=== PATIENT | male | born 1970 | race Two or more races ===

== ENCOUNTER 2018-09-15 17:55 | Inpatient (IN) | payer MEDICAID ==
[~2018-09-15] VITALS: Ht 167.6 cm; Wt 126.3 kg
[~2018-09-15 17:55] MED LIST: AMLO-512 PO; HYDR25TA84 PO; METF-960 PO; NACL1 PO; SERT50TA12 PO
[2018-09-15 18:14] LABS: GLUCOSE,POINT OF CARE 178 MG/DL (70-110)
[2018-09-15 19:04] LABS: HEMOGLOBIN 15.3 g/dL (13.5-17.5); MEAN CORPUSCULAR HEMOGLOBIN 28.6 pg (26.0-34.0); MONOCYTES # (AUTO) 0.6 K/uL (0.1-1.0); RED BLOOD CELL COUNT(AUTO) 5.34 MIL/uL (4.50-5.90)
[2018-09-15 19:16] LABS: ANION GAP 10 mmol/L (8-16); BASOPHILS % (AUTO) 0.7 % (0.0-2.0); CARBON DIOXIDE 27 mmol/L (22-29); CHLORIDE 99 mmol/L (98-107); CREATININE 0.74 mg/dL (0.60-1.30); EOSINOPHILS % (AUTO) 3.9 % (1.0-6.0); GLOMERULAR FILTR. RATE CALC > 60 mL/min (>60); GLUCOSE,RANDOM 158 mg/dL (70-110); HEMATOCRIT 45.4 % (41-53); LYMPHOCYTES # (AUTO) 3.9 K/uL (1.0-4.8); LYMPHOCYTES % (AUTO) 34.4 % (22.0-44.0); MEAN CORPUSCULAR HGB CONC 33.6 G/dL (31.0-37.0); MEAN CORPUSCULAR VOLUME 85 fL (80-100); NEUTROPHILS # (AUTO) 6.4 K/uL (1.8-7.7); PLATELET COUNT (AUTO) 253 K/uL (150-450); POTASSIUM 3.6 mmol/L (3.5-5.1); RED CELL DISTRIBUTION WIDTH 14.2 % (11.5-14.5); SODIUM SERUM 136 mmol/L (136-145); UREA NITROGEN, BLOOD 15 mg/dL (7-18)
[2018-09-15 19:22] LABS: ALANINE AMINOTRANSFERASE 18 U/L (12-78); ALBUMIN 3.4 g/dL (3.4-5.0); ALKALINE PHOSPHATASE 80 U/L (46-116); ASPARTATE AMINOTRANSFERASE 8 U/L (15-37); BILIRUBIN,TOTAL 0.2 mg/dL (0.1-1.0); SALICYLATE < 2.8 mg/dL (2.8-20.0); TOTAL PROTEIN, SERUM 7.4 g/dL (6.4-8.2)
[2018-09-15 19:31] LABS: AMPHET/METH SCREEN,URINE POSITIVE (NEGATIVE); BARBITURATE SCREEN, URINE NEGATIVE (NEGATIVE); BENZODIAZEPINES SCREEN,URINE NEGATIVE (NEGATIVE); CANNABINOID SCREEN,URINE NEGATIVE (NEGATIVE); COCAINE SCREEN,URINE NEGATIVE (NEGATIVE); METHADONE SCREEN, URINE NEGATIVE (NEGATIVE); OPIATE SCREEN,URINE NEGATIVE (NEGATIVE); PHENCYCLIDINE SCREEN,URINE NEGATIVE (NEGATIVE)
[2018-09-15] MEDS ORDERED: ACETAMINOPHEN 500 MG TABLET PO ONE (21:00)
[2018-09-16] MEDS ORDERED: HALOPERIDOL 5 MG TABLET PO PRN (12:15)
[2018-09-16] MEDS ORDERED: LORazepam 2 MG TABLET PO PRN (12:15)
[2018-09-16] MEDS ORDERED: ZOLPIDEM TARTRATE 10 MG TABLET PO PRN (12:15)
[2018-09-16] MEDS ORDERED: ACETAMINOPHEN 325 MG TABLET PO PRN ×2 (12:30→22:30)
[2018-09-16] MEDS ORDERED: IBUPROFEN 400 MG TABLET PO PRN ×2 (12:30→22:30)
[2018-09-16] MEDS ORDERED: DiphenhydrAMINE HCL 50 MG/ML VIAL IM ONE (12:45)
[2018-09-16] MEDS ORDERED: HALOPERIDOL LACTATE 5 MG/ML VIAL IM ONE (12:45)
[2018-09-16] MEDS ORDERED: LORazepam 2 MG/ML VIAL IM ONE (12:45)
[2018-09-16 20:22] VITALS: BP 142/83
[2018-09-16] MEDS ORDERED: PETROLATUM,WHITE 28 GM JELLY TP PRN (22:30)
[2018-09-16] MEDS ORDERED: DOCUSATE SODIUM 100 MG CAPSULE PO PRN (22:30)
[2018-09-16] MEDS ORDERED: ALBUTEROL SULFATE HFA 90 MCG/PUFF 8 GM INHALER IH PRN (22:30)
[2018-09-16] MEDS ORDERED: DEXTROSE 50%-WATER 25 GM/50 ML SYRINGE IVP PRN (22:30)
[2018-09-16] MEDS ORDERED: NICOTINE 14 MG/24 HOUR PATCH TD PRN (22:30)
[2018-09-16] MEDS ORDERED: GuaiFENesin/D-METHORPHAN [SUGAR-FREE] 200-20MG/10 ML SYRUP UDCUP PO PRN (22:30)
[2018-09-16] MEDS ORDERED: LOPERAMIDE HCL 2 MG CAPSULE PO PRN (22:30)
[2018-09-16] MEDS ORDERED: MAGNESIUM HYDROXIDE SUSPENSION 30 ML UDCUP PO PRN (22:30)
[2018-09-16] MEDS ORDERED: ONDANSETRON HCL 4 MG TABLET PO PRN (22:30)
[2018-09-16] MEDS ORDERED: CloNIDine HCL 0.1 MG TABLET PO PRN (22:30)
[2018-09-16] MEDS ORDERED: MAG HYDROX/AL HYDROX/SIMETH ES 30 ML SUSPENSION UDCUP PO PRN (22:30)
[2018-09-17 02:48] VITALS: BP 148/111
[2018-09-17 06:39] LABS: GLUCOMETER DEV NAME(LOC) 3E.C; GLUCOSE,POINT OF CARE 132 MG/DL (70-110)
[2018-09-17] MEDS: MetFORMIN HCL 500 MG TABLET PO SCH (06:50)
[2018-09-17] MEDS ORDERED: MetFORMIN HCL 500 MG TABLET PO SCH (07:30)
[2018-09-17] MEDS ORDERED: AmLODIPine BESYLATE 10 MG TABLET PO SCH (09:00)
[2018-09-17] MEDS: SERTRALINE HCL 50 MG TABLET PO SCH (09:36)
[2018-09-17] MEDS: AmLODIPine BESYLATE 10 MG TABLET PO SCH (09:37)
[2018-09-17] MEDS: HydrALAZINE HCL 25 MG TABLET PO SCH ×2 (09:37→16:56)
[2018-09-17] MEDS: SODIUM CHLORIDE 1 GM TABLET PO SCH ×2 (09:37→16:56)
[2018-09-17 10:04] VITALS: BP 128/85
[2018-09-17 11:09] LABS: GLUCOMETER DEV NAME(LOC) 3E.C; GLUCOSE,POINT OF CARE 134 MG/DL (70-110)
[2018-09-17 16:44] LABS: GLUCOMETER DEV NAME(LOC) 3E.C; GLUCOSE,POINT OF CARE 154 MG/DL (70-110)
[2018-09-17 16:57] VITALS: BP 145/72
[2018-09-17] MEDS: INSULIN LISPRO 100 UNITS/ML SQ PRN (17:38)
[2018-09-17 21:14] LABS: GLUCOMETER DEV NAME(LOC) 3E.C; GLUCOSE,POINT OF CARE 102 MG/DL (70-110)
[2018-09-18 06:25] LABS: GLUCOMETER DEV NAME(LOC) 3E.C; GLUCOSE,POINT OF CARE 130 MG/DL (70-110)
[2018-09-18] MEDS: MetFORMIN HCL 500 MG TABLET PO SCH (06:50)
[2018-09-18] MEDS: INSULIN LISPRO 100 UNITS/ML SQ PRN ×2 (06:57→12:03)
[2018-09-18] MEDS: SODIUM CHLORIDE 1 GM TABLET PO SCH (07:57)
[2018-09-18] MEDS: HydrALAZINE HCL 25 MG TABLET PO SCH (07:57)
[2018-09-18] MEDS: SERTRALINE HCL 50 MG TABLET PO SCH (07:59)
[2018-09-18] MEDS: AmLODIPine BESYLATE 10 MG TABLET PO SCH (07:59)
[2018-09-18 08:40] VITALS: BP 148/97
[2018-09-18 12:14] LABS: GLUCOMETER DEV NAME(LOC) 3E.C; GLUCOSE,POINT OF CARE 154 MG/DL (70-110)
== END 2018-09-18 15:36 | disposition home or self-care (01) | DRG 751 ==
LOC: EMS 17:56 → AHU 09-16 12:24 → 3EC 09-16 20:00
PROVIDERS: ADMIT Psychiatry & Neurology Psychiatry; ATTEND Psychiatry & Neurology Psychiatry
DX: F33.2 Major depressive disorder, recurrent severe without psychotic features (principal); E11.9 Type 2 diabetes mellitus without complications; D72.829 Elevated white blood cell count, unspecified; E78.00 Pure hypercholesterolemia, unspecified; I10 Essential (primary) hypertension; F19.10 Other psychoactive substance abuse, uncomplicated; T40.2X2A Poisoning by other opioids, intentional self-harm, initial encounter; Z87.891 Personal history of nicotine dependence; Z91.19 Patient's noncompliance with other medical treatment and regimen; Z91.5 Personal history of self-harm
CPT/HCPCS: 84443; 96372; G0480; G0481; J1200; J1630; J2060

== ENCOUNTER 2020-10-28 15:23 | Inpatient (IN) | payer MEDICAID ==
[~2020-10-28] VITALS: Ht 167.6 cm; Wt 129.7 kg
[~2020-10-28 15:23] MED LIST changes: +AMLO-258 PO; -AMLO-512 PO; +SERT-439 PO; -SERT50TA12 PO
[2020-10-28 16:14] LABS: BASOPHILS % (AUTO) 0.5 % (0.0-2.0); EOSINOPHILS % (AUTO) 2.7 % (1.0-6.0); HEMATOCRIT 46.9 % (41-53); HEMOGLOBIN 15.8 g/dL (13.5-17.5); LYMPHOCYTES # (AUTO) 2.8 K/uL (1.0-4.8); LYMPHOCYTES % (AUTO) 30.8 % (22.0-44.0); MEAN CORPUSCULAR HEMOGLOBIN 28.8 pg (26.0-34.0); MEAN CORPUSCULAR HGB CONC 33.6 G/dL (31.0-37.0); MEAN CORPUSCULAR VOLUME 86 fL (80-100); MONOCYTES # (AUTO) 0.7 K/uL (0.1-1.0); MONOCYTES % (AUTO) 7.6 % (2.0-9.0); NEUTROPHILS # (AUTO) 5.4 K/uL (1.8-7.7); NEUTROPHILS % (AUTO) 58.4 % (40.0-70.0); PLATELET COUNT (AUTO) 226 K/uL (150-450); RED BLOOD CELL COUNT(AUTO) 5.48 MIL/uL (4.50-5.90); RED CELL DISTRIBUTION WIDTH 14.6 % (11.5-14.5)
[2020-10-28 16:18] LABS: COVID AG,FIA SOURCE NASOPHARYNGEAL
[2020-10-28 16:29] LABS: ANION GAP 10 mmol/L (8-16); CALCIUM, TOTAL 8.8 mg/dL (8.8-10.5); CARBON DIOXIDE 25 mmol/L (22-29); CHLORIDE 99 mmol/L (98-107); CREATININE 0.54 mg/dL (0.60-1.30); GLOMERULAR FILTR. RATE CALC > 60 mL/min (>60); GLUCOSE,RANDOM 109 mg/dL (70-110); POTASSIUM 3.9 mmol/L (3.5-5.1); SODIUM SERUM 134 mmol/L (136-145); UREA NITROGEN, BLOOD 11 mg/dL (7-18)
[2020-10-28 16:33] LABS: AMPHET/METH SCREEN,URINE NEGATIVE (NEGATIVE); BARBITURATE SCREEN, URINE NEGATIVE (NEGATIVE); BENZODIAZEPINES SCREEN,URINE NEGATIVE (NEGATIVE); CANNABINOID SCREEN,URINE NEGATIVE (NEGATIVE); COCAINE SCREEN,URINE NEGATIVE (NEGATIVE); METHADONE SCREEN, URINE NEGATIVE (NEGATIVE); OPIATE SCREEN,URINE NEGATIVE (NEGATIVE); PHENCYCLIDINE SCREEN,URINE NEGATIVE (NEGATIVE)
[2020-10-28 16:33] LABS: ALANINE AMINOTRANSFERASE 36 U/L (12-78); ALBUMIN 3.6 g/dL (3.4-5.0); ALKALINE PHOSPHATASE 59 U/L (46-116); ASPARTATE AMINOTRANSFERASE 14 U/L (15-37); BILIRUBIN,TOTAL 0.4 mg/dL (0.1-1.0); TOTAL PROTEIN, SERUM 7.7 g/dL (6.4-8.2)
[2020-10-28 20:33] VITALS: BP 147/74
[2020-10-29 06:24] VITALS: BP 141/89
[2020-10-29] MEDS ORDERED: ACETAMINOPHEN 325 MG TABLET PO PRN (08:15)
[2020-10-29] MEDS ORDERED: PETROLATUM,WHITE 28 GM JELLY TP PRN (08:15)
[2020-10-29] MEDS ORDERED: ALBUTEROL SULFATE HFA 90 MCG/PUFF 8 GM INHALER IH PRN (08:15)
[2020-10-29] MEDS ORDERED: CloNIDine HCL 0.1 MG TABLET PO PRN (08:15)
[2020-10-29] MEDS ORDERED: ONDANSETRON HCL 4 MG TABLET PO PRN (08:15)
[2020-10-29] MEDS ORDERED: GuaiFENesin/D-METHORPHAN [SUGAR-FREE] 200-20MG/10 ML SYRUP UDCUP PO PRN (08:15)
[2020-10-29] MEDS ORDERED: IBUPROFEN 400 MG TABLET PO PRN (08:15)
[2020-10-29] MEDS ORDERED: MAG HYDROX/AL HYDROX/SIMETH ES 30 ML SUSPENSION UDCUP PO PRN (08:15)
[2020-10-29] MEDS ORDERED: DOCUSATE SODIUM 100 MG CAPSULE PO PRN (08:15)
[2020-10-29] MEDS ORDERED: MAGNESIUM HYDROXIDE SUSPENSION 30 ML UDCUP PO PRN (08:15)
[2020-10-29] MEDS ORDERED: LOPERAMIDE HCL 2 MG CAPSULE PO PRN (08:15)
[2020-10-29 08:42] VITALS: BP 167/90
[2020-10-29] MEDS: LORazepam 2 MG TABLET PO PRN (09:07)
[2020-10-29] MEDS: HALOPERIDOL 5 MG TABLET PO PRN (09:07)
[2020-10-29] MEDS: AmLODIPine BESYLATE 10 MG TABLET PO SCH (09:07)
[2020-10-29] MEDS: HydrALAZINE HCL 25 MG TABLET PO SCH ×2 (09:15→17:08)
[2020-10-29] MEDS: SODIUM CHLORIDE 1 GM TABLET PO SCH ×2 (09:15→17:08)
[2020-10-29 10:36] LABS: CHOL/HDL RATIO 7.3 (4.2-7.3); FREE T4 (FREE THYROXINE) 1.12 ng/dL (0.76-1.46); THYROID STIMULATING HORMONE 1.24 uIU/mL (0.36-3.74)
[2020-10-29] MEDS: SERTRALINE HCL 50 MG TABLET PO SCH (11:20)
[2020-10-29 16:29] VITALS: BP 136/76
[2020-10-30 05:41] VITALS: BP 125/75
[2020-10-30] MEDS: MetFORMIN HCL 500 MG TABLET PO SCH (06:23)
[2020-10-30 08:45] VITALS: BP 167/91
[2020-10-30] MEDS: HydrALAZINE HCL 25 MG TABLET PO SCH ×2 (09:12→17:48)
[2020-10-30] MEDS: AmLODIPine BESYLATE 10 MG TABLET PO SCH (09:12)
[2020-10-30] MEDS: SODIUM CHLORIDE 1 GM TABLET PO SCH ×2 (09:12→17:48)
[2020-10-30] MEDS: SERTRALINE HCL 50 MG TABLET PO SCH (09:12)
[2020-10-30 16:15] VITALS: BP 134/80
[2020-10-30] MEDS: LORazepam 2 MG TABLET PO PRN (17:48)
[2020-10-30] MEDS: ZOLPIDEM TARTRATE 10 MG TABLET PO PRN (23:45)
[2020-10-31 00:17] VITALS: BP 130/69
[2020-10-31] MEDS: MetFORMIN HCL 500 MG TABLET PO SCH (07:02)
[2020-10-31] MEDS: LORazepam 2 MG TABLET PO PRN (08:20)
[2020-10-31 08:43] VITALS: BP 146/86
[2020-10-31] MEDS: SERTRALINE HCL 50 MG TABLET PO SCH (08:46)
[2020-10-31] MEDS: SODIUM CHLORIDE 1 GM TABLET PO SCH ×2 (08:46→17:10)
[2020-10-31] MEDS: AmLODIPine BESYLATE 10 MG TABLET PO SCH (08:46)
[2020-10-31] MEDS: HydrALAZINE HCL 25 MG TABLET PO SCH ×2 (08:46→17:10)
[2020-10-31 17:30] VITALS: BP 130/77
[2020-11-01] MEDS: ZOLPIDEM TARTRATE 10 MG TABLET PO PRN (00:05)
[2020-11-01 00:16] VITALS: BP 149/90
[2020-11-01] MEDS: MetFORMIN HCL 500 MG TABLET PO SCH (06:34)
[2020-11-01 08:06] VITALS: BP 147/85
[2020-11-01] MEDS: AmLODIPine BESYLATE 10 MG TABLET PO SCH (09:21)
[2020-11-01] MEDS: HydrALAZINE HCL 25 MG TABLET PO SCH ×2 (09:21→17:22)
[2020-11-01] MEDS: SERTRALINE HCL 50 MG TABLET PO SCH (09:21)
[2020-11-01] MEDS: SODIUM CHLORIDE 1 GM TABLET PO SCH ×2 (09:21→17:22)
[2020-11-01] MEDS: NICOTINE 14 MG/24 HOUR PATCH TD PRN (09:21)
[2020-11-01 16:19] VITALS: BP 137/85
[2020-11-01] MEDS: LORazepam 2 MG TABLET PO PRN (17:22)
[2020-11-02] MEDS: ZOLPIDEM TARTRATE 10 MG TABLET PO PRN (00:52)
[2020-11-02 03:20] VITALS: BP 154/93
[2020-11-02] MEDS: MetFORMIN HCL 500 MG TABLET PO SCH (07:03)
[2020-11-02 08:38] VITALS: BP 126/75
[2020-11-02] MEDS: LORazepam 2 MG TABLET PO PRN ×2 (09:00→17:04)
[2020-11-02] MEDS: HydrALAZINE HCL 25 MG TABLET PO SCH ×2 (09:00→17:04)
[2020-11-02] MEDS: AmLODIPine BESYLATE 10 MG TABLET PO SCH (09:00)
[2020-11-02] MEDS: SODIUM CHLORIDE 1 GM TABLET PO SCH ×2 (09:00→17:04)
[2020-11-02] MEDS: SERTRALINE HCL 50 MG TABLET PO SCH (09:00)
[2020-11-02] MEDS: HALOPERIDOL 5 MG TABLET PO PRN ×2 (09:01→17:04)
[2020-11-02 16:20] VITALS: BP 125/80
[2020-11-03 06:40] VITALS: BP 142/79
[2020-11-03] MEDS: MetFORMIN HCL 500 MG TABLET PO SCH (07:04)
[2020-11-03 08:25] VITALS: BP 144/82
[2020-11-03] MEDS: AmLODIPine BESYLATE 10 MG TABLET PO SCH (08:55)
[2020-11-03] MEDS: SODIUM CHLORIDE 1 GM TABLET PO SCH ×2 (08:55→16:31)
[2020-11-03] MEDS: HydrALAZINE HCL 25 MG TABLET PO SCH ×2 (08:56→16:31)
[2020-11-03] MEDS: SERTRALINE HCL 50 MG TABLET PO SCH (08:56)
[2020-11-03] MEDS: LORazepam 2 MG TABLET PO PRN (09:10)
[2020-11-03] MEDS ORDERED: SERT-439 PO (09:13)
[2020-11-03] MEDS: NICOTINE 14 MG/24 HOUR PATCH TD PRN (09:51)
[2020-11-03] MEDS ORDERED: SERT-158 PO (16:03)
[2020-11-03] MEDS ORDERED: HYDR25TA84 PO (16:03)
[2020-11-03] MEDS ORDERED: NACL1 PO (16:05)
[2020-11-03] MEDS ORDERED: METF-960 PO (16:05)
[2020-11-03] MEDS ORDERED: AMLO-258 PO (16:06)
== END 2020-11-03 16:45 | disposition home or self-care (01) | DRG 751 ==
LOC: EMS 15:23 → B3A 17:12
DX: F33.2 Major depressive disorder, recurrent severe without psychotic features (principal); E87.1 Hypo-osmolality and hyponatremia; R45.851 Suicidal ideations; E11.9 Type 2 diabetes mellitus without complications; Z68.42 Body mass index [BMI] 45.0-49.9, adult; Z20.822 Contact with and (suspected) exposure to COVID-19; E66.9 Obesity, unspecified; I10 Essential (primary) hypertension; F10.10 Alcohol abuse, uncomplicated; F15.10 Other stimulant abuse, uncomplicated; F17.210 Nicotine dependence, cigarettes, uncomplicated; Z79.899 Other long term (current) drug therapy
CPT/HCPCS: 80053; 80061; 84439; 84443; 85025; 99285; G0480